=== PATIENT | male | born 1980 | race American Indian/Alaskan Native ===

== ENCOUNTER 2019-05-03 16:58 | Emergency (ER) | payer SELFPAY ==
[2019-05-03] MEDS ORDERED: HYDROmorphone 1 MG/1 ML INJ IV ONE ×3 (17:14→18:50)
[2019-05-03] MEDS ORDERED: TETANUS,DIPH,PERTUSS(ACELL) VACCINE 0.5 ML SYRINGE IM ONE (17:14)
--- NOTE | 2019-05-03 17:16 | Event Note ---
Date: 05/03/19 Medical screening note: 38-year-old gentleman, [id number], presents with industrial related left dorsal laceration/laceration, extensive to his left hand. He denies additional injuries. He is protecting his airway. We will treat his pain, give tetanus vaccination, obtain x-ray of the left hand. He will be given Ancef empirically.
--- NOTE | 2019-05-03 17:39 | Emergency Department Report ---
Upper Extremity - HPI Chief Complaint: Extremity Injury, Upper Stated Complaint: LFT HAND SAW INJURY/PAIN Time Seen by Provider: 05/03/19 17:08 Upper Extremity: Left Hand, Left Thumb Occurred When: Today Mechanism: Other (Accidentally cut with a saw) Severity: severe Symptoms: Yes Pain with Movement, Yes Deformity, Yes Limited Range of Movement, Yes Laceration or Abrasion Other History: The patient is a pleasant 38-year-old gentleman, who is right- hand dominant, not sure of tetanus vaccination status, who presents to the ER with an accidental work-related injury, he cut the dorsal aspect of his left hand, with a work saw, involving extensor tendons on his left pointer finger and middle finger, and partial involvement of the thumb. He has no other injuries and no other complaints. He has sharp throbbing aching pain, which is constant, does not radiate anywhere, increases with palpation and decreases with rest. He denies additional injuries. He denies additional complaints. ED Review of Systems ROS: Stated complaint: LFT HAND SAW INJURY/PAIN Other details as noted in HPI Constitutional: see HPI Eyes: as per HPI ENT: as per HPI Respiratory: see HPI Cardiovascular: as per HPI Endocrine: see HPI Gastrointestinal: as per HPI Genitourinary: as per HPI Musculoskeletal: arthralgia, myalgia Skin: lesions Psychiatric: as per HPI Hematological/Lymphatic: as per HPI ED Past Medical Hx - Past Medical History Previous Medical History?: Yes Hx Hypertension: Yes - Surgical History Past Surgical History?: No Upper Extremity Exam - Exam General: Vital signs noted. Patient appears to be somewhat anxious 2+ pulses noted in the bilateral upper extremities. The right upper extremity is within normal limits. The left upper extremity there is a large laceration noted, approximately 5 to 6 cm on the dorsal aspect of the left hand, that appears to extend down to bone. There is obvious disruption of flexor tendons on the left pointer finger and middle finger. There is partial involvement over the crease of the IP joint in the left thumb. Capillary refill is intact in 5 digits in the left upper extremity. 2+ radial pulses noted in the left upper extremity. There is no facial droop. The tongue is midline. The extraocular movements are intact bilaterally. Speaking full sentences. 5 out of 5 strength in 4 extremities, sensation is intact to light touch in 4 extremities. Head and Torso: No HEENT Abnormality, No Neck Tenderness, No Chest/Lungs Abnormality, No Abdominal Tenderness Shoulder Exam: Yes Normal Range of Motion in Shoulder, No Shoulder Tenderness, No Clavicle Tenderness, No Shoulder Deformity, No AC Joint Tenderness Arm Exam: No Arm/Humerus Tenderness, No Arm Deformity Elbow: Yes Normal Range of Motion in Elbow, No Elbow Tenderness, No Elbow Deformity Forearm: No Forearm Tenderness, No Forearm Deformity, No Pain with Pronation, No Pain with Supination Wrist: No Wrist Tenderness, No Wrist Deformity, No Snuffbox Tenderness, No Pain with Axial Thumb Compression Hand: Yes Hand Tenderness, Yes Hand Deformity, No Normal ROM in Digit(s), No Digit(s) Deformity, No Tendon Dysfunction CMS Exam: Yes Broken Skin, Yes Normal Distal Pulses, Yes Normal Capillary Refill ED Medical Decision Making - Lab Data Vital Signs 05/03/19 17:40 Temperature 98.1 F Pulse Rate 68 Respiratory 16 Rate Blood Pressure 133/90 O2 Sat by Pulse 100 Oximetry - Radiology Data Radiology results: report reviewed, image reviewed Print Report Referring Physician: ZAHRA POOL Patient Name: EBER EUCEDA Date of : 1980 Sex: Male Report Date: 2019-05-03 Report Status: Finalized Findings [facility] [address] [place] [address] XRay Report Signed Patient: EBER EUCEDA MR#: [id number] 50 : 1980 Acct:[id number] Age/Sex: 38 / M ADM Date: 05/03/19 Loc: ED Attending Dr: Ordering Physician: OFELIA CONDE Date of Service: 05/03/19 Procedure(s): XR hand 3+V LT Accession Number(s): [id number] cc: OFELIA CONDE Fluoro Time In Minutes: LEFT HAND 4 VIEWS INDICATION / CLINICAL INFORMATION: Laceration to dorsal hand. COMPARISON: None available. FINDINGS: BONES / JOINT(S): There is a comminuted fracture of the midshaft of the second metacarpal laterally. There are multiple small displaced fracture fragments laterally and dorsally. The fracture appears incomplete. There is also a fracture involving the proximal shaft of the proximal phalanx of the thumb which also appears incomplete. Multiple adjacent fracture fragments are noted. SOFT TISSUES: T here is an associated defect in the adjacent soft tissues at both fracture sites consistent with an associated laceration. ADDITIONAL FINDINGS: None. Signer Name: Hao Schwab MD Signed: 05/03/2019 5:39 PM Workstation Name: [id number] Transcribed By: RT Dictated By: Hao Schwab MD Electronically Authenticated By: Hao Schwab MD Signed Date/Time: 05/03/191738 DD/ 34 - Medical Decision Making Differential diagnosis, including but not limited to: Laceration, tendon di sruption, open fracture Assessment and plan: 38-year-old gentleman with obvious tendon disruption, large significant laceration of left upper extremity/hand, requires emergent evaluation by hand surgeon. This hospital does not have a hand surgeon or trauma surgeon available for consultation. The patient has an emergency medical condition which requires subspecialty care not available at this facility, and he will be transferred. He denies additional injuries and complaints, and his airway is intact, breath sounds are clear to auscultation bilaterally, and the remainder of his primary survey is unremarkable. The patient is stable for transport to higher level of care. Discussed with hand surgeon at [facility] Dr. Helton who has accepted the patient as a transfer. Extensive discussion had with patient and family regarding need for emergent transfer. They have given verbal and signed informed consent for transfer. Patient is suitable for transport at this time. Critical care attestation.: If time is entered above; I have spent that time in minutes in the direct care of this critically ill patient, excluding procedure time. ED Disposition Clinical Impression: Laceration of left hand, Injury of extensor tendon of left hand, Open metacarpal fracture Disposition[id number] IP Is pt being admited?: No Does the pt Need Aspirin: No Condition: Stable Referrals: MICHELLE GARCIA MD [Primary Care Provider] - 3-5 Days
--- NOTE | 2019-05-03 17:43 | XRay Report ---
LEFT HAND 4 VIEWS INDICATION / CLINICAL INFORMATION: Laceration to dorsal hand. COMPARISON: None available. FINDINGS: BONES / JOINT(S): There is a comminuted fracture of the midshaft of the second metacarpal laterally. There are multiple small displaced fracture fragments laterally and dorsally. The fracture appears in complete. There is also a fracture involving the proximal shaft of the proximal phalanx of the thumb which also appears incomplete. Multiple adjacent fracture fragments are noted. SOFT TISSUES: There is an associated defect in the adjacent soft tissues at both fracture sites consi stent with an associated laceration. ADDITIONAL FINDINGS: None. Signer Name: Hao Schwab MD Signed: 05/03/2019 5:39 PM Workstation Name: [id number]
[2019-05-03 18:12] VITALS: BP 145/90
== END 2019-05-03 18:55 | disposition short-term general hospital (02) ==
LOC: ED 16:58
DX: S62.321B Displaced fracture of shaft of second metacarpal bone, left hand, initial encounter for open fracture (principal); S61.412A Laceration without foreign body of left hand, initial encounter; W31.89XA Contact with other specified machinery, initial encounter; Y93.89 Activity, other specified; Y92.89 Other specified places as the place of occurrence of the external cause; Y99.8 Other external cause status
CPT/HCPCS: 73130; 90471; 90715; 96365; 96375; 96376; 99285; J0690; J1170